=== PATIENT | female | born 1985 | race Two or more races ===

== ENCOUNTER 2023-10-03 09:33 | Emergency (ER) | payer OTHER ==
[~2023-10-03] VITALS: Ht 121.9 cm; Wt 72.6 kg
[2023-10-03 10:26] LABS: HEMATOCRIT 37.1 % (36.0-45.00); MEAN CELL VOLUME 84.2 fL (80.00-100.00); MEAN CORPUSCULAR HEMOGLOBIN 27.3 pg (27.00-32.0); MEAN CORPUSCULAR HGB CONC 32.4 g/dl (32.0-36.0); PLATELET COUNT 284 K/uL (150-450); RED BLOOD COUNT 4.41 M/uL (4.00-6.00); RED CELL DISTRIBUTION WIDTH 14.6 % (11.5-14.5)
[2023-10-03 10:41] LABS: URINE APPEARANCE Cloudy; URINE BILIRRUBIN Negative (NEGATIVE); URINE BLOOD Large; URINE COLOR Yellow; URINE GLUCOSE Negative (NEGATIVE); URINE LEUKOCYTE Moderate; URINE NITRATE Negative; URINE PROTEIN 30 (NEGATIVE)
[2023-10-03 10:45] LABS: URINE BACTERIA 2513.6 uL (0.0-1933); URINE EPITHELIAL CELLS 68.7 uL (0.0-38.8)
[2023-10-03 10:51] LABS: CALCIUM 8.9 mg/dL (8.5-10.1); CREATININE SERUM 0.68 mg/dL (0.55-1.02); GFR 97.36; POTASSIUM 3.58 mEq/L (3.5-5.1)
[2023-10-03 12:22] LABS: URINE CRYSTALS NEGATIVE /HPF; URINE YEAST NEGATIVE /hpf
== END 2023-10-03 13:17 | disposition home or self-care (01) ==
LOC: ER 09:33
PROVIDERS: General Practice
DX: N39.0 Urinary tract infection, site not specified (principal)